=== PATIENT | male | born 1945 | race Caucasian/White ===

== ENCOUNTER 2018-02-22 08:59 | Outpatient (CLI) | payer MEDICARE ==
--- NOTE | 2018-02-22 11:06 | HP ---
DATE OF SERVICE: 02/22/2018 HISTORY OF PRESENT ILLNESS: Mr. Frank Robles is a very pleasant 72-year-old gentleman who i s referred to the [facility] for evaluation of lymphedema of the right lower extremity. The patien t was referred to the [facility] by Dr. Medina on 02/13/2018. The patient reports right hip arthr oplasty in the past. He also states that he has undergone surgery for chronic venous insufficiency o n 2 occasions previously. He also states that from time to time he utilizes compression garments. H e states, however, that the superior portion of the compression garment feels like a tourniquet when he utilizes his garments. PAST MEDICAL HISTORY: 1. Arthritis. 2. Hypertension. 3. Benign prostatic hypertrophy. 4. Gastroesophageal reflux disease. PAST SURGICAL HISTORY: 1. Left carpal tunnel release. 2. Right carpal tunnel release. 3. Bilateral hip arthroplasty. 4. Washout of hip arthroplasty infection. 5. Knee arthroplasty. 6. Bilateral shoulder surgery. 7. Knee surgery prior to knee arthroplasty. 8. Lumbar laminectomy. 9. Surgery for chronic venous insufficiency x2. MEDICATIONS: 1. Esomeprazole. 2. Losartan/HCTZ. 3. Pioglitazone. 4. Amlodipine. 5. Finasteride. 6. Tamsulosin. 7. Lasix. 8. Hydroxyzine. 9. Coreg. 10. Xarelto. 11. Tizanidine. 12. Potassium chloride. 13. Metaxalone. 14. Ibuprofen. ALLERGIES: PENICILLIN. SOCIAL HISTORY: Negative for tobacco use. The patient admits to the consumption of 2-3 drinks per d ay for 30-40 years. FAMILY HISTORY: Negative for diabetes mellitus or coronary artery disease. PHYSICAL EXAMINATION: VITAL SIGNS: Temperature 98.8, pulse 84, respirations 18, blood pressure 157/89. GENERAL: A 72-year-old gentleman sitting on table in examination room in no acute distress. HEENT: Normocephalic, atraumatic. NECK: No nuchal rigidity. CHEST: Clear to auscultation. CARDIOVASCULAR: Regular rate and rhythm. ABDOMEN: Soft. EXTREMITIES: Swelling of the right and left lower extremities is present on exam today. The swellin g of the right lower extremity is greater than that of the left lower extremity. Circumferences of t he right lower extremity at the ankle, calf and knee are 32.5 cm, 47.5 cm, and 44 cm. Circumferences of the left lower extremity at the ankle, calf and knee are 32 cm, 42 cm, and 39 cm. No open wounds are present over the right or left lower extremity. Slight erythema of the right anterior lower leg is present consistent with stasis changes as opposed to an infectious process. Mild calf tenderness is also present on exam today. Numerous varicosities are present over the right and left lower legs . Discoloration of the skin of the right and left lower legs is also present secondary to hemosideri n deposition. NEUROLOGIC: Grossly nonfocal. ASSESSMENT AND PLAN: 1. Chronic venous insufficiency. The patient reports the recent onset of calf tenderness. Ultrasou nd of the right lower extremity will be obtained today to look for findings suggestive of deep venous thrombosis. 2. Lymphedema tarda. The patient reports the swelling of his lower extremities is persistent despit e elevation of his lower extremities, particularly at night. Arrangements will be made for the initi ation of in-home lymphedema therapy. I will see Mr. Robles again in one week. The patient understand s and is in agreement with the preceding treatment plan. 3. Arthritis. 4. Hypertension. 5. Benign prostatic hypertrophy. 6. Gastroesophageal reflux disease.
== END 2018-02-22 09:00 | disposition home or self-care (01) ==
LOC: WCC 08:59
PROVIDERS: ATTEND Family Medicine
DX: I89.0 Lymphedema, not elsewhere classified (principal); I87.2 Venous insufficiency (chronic) (peripheral); M19.90 Unspecified osteoarthritis, unspecified site; I10 Essential (primary) hypertension; N40.0 Benign prostatic hyperplasia without lower urinary tract symptoms; K21.9 Gastro-esophageal reflux disease without esophagitis
CPT/HCPCS: 97139; G0463; 99203

== ENCOUNTER 2018-02-22 10:18 | Outpatient (CLI) | payer MEDICARE ==
--- NOTE | 2018-02-22 11:25 | ULT ---
ULTRASOUND VENOUS DOPPLER RIGHT UNILATERAL: HISTORY: M79.89. Swelling. Pain. COMPARISON: None. TECHNIQUE: Real-time werner-scale color Doppler and spectral analysis of the right lower extremity venous system w as performed with a linear array transducer. The common femoral, femoral, and proximal portion of th e greater saphenous and deep femoral veins, as well as the popliteal and posterior tibial veins were interrogated. FINDINGS: There is normal flow, augmentation, and compression. A multiloculated popliteal cyst is present. Mild low grade edema. IMPRESSION: 1. Low grade edema and popliteal cyst. 2. No deep venous thrombosis. POS: [facility]
== END 2018-02-22 10:19 | disposition home or self-care (01) ==
LOC: ULT 10:18
PROVIDERS: ATTEND Family Medicine
DX: R60.0 Localized edema (principal); M71.21 Synovial cyst of popliteal space [Baker], right knee

== ENCOUNTER 2018-06-26 14:08 | Outpatient (CLI) | payer MEDICARE ==
[~2018-06-26 14:08] MED LIST: Gadobenate Dimeglumine 529 MG/1 ML (20ML VIAL) ONE
--- NOTE | 2018-06-26 16:08 | RAD ---
LUMBAR SPINE FOUR VIEWS: INDICATIONS: Lumbar pain. History of prior lumbar surgery. TECHNIQUE: Lateral views were obtained with neutral, flexion, and extension positions. FINDINGS: On the AP view, there are prominent degenerative hypertrophic changes. Disk narrowing at L1-L2 and a t L2-L3. Scoliosis curvature with convexity to the left and apex at L3. Posterior laminectomy pope e. Pedicle screws are seen at L4 and L5. There is an interbody implant at L4-L5. There is a grade 1 spondylolisthesis at L4-L5. Posterior facet hypertrophy is prominent. There is mild posterior listhesis at L2-L3, which has not significantly changed with flexion and exte nsion. The anterolisthesis at L4-L5 did not appear to significantly change with flexion and extensio n. IMPRESSION: Degenerative and postoperative changes, lumbar spine, noted, as described. POS: [place]
--- NOTE | 2018-06-26 17:31 | MRI ---
MRI LUMBAR SPINE WITH AND WITHOUT CONTRAST: Date: 06/26/18 Multiplanar, multisequential imaging of the lumbar spine obtained. Postcontrast images obtained with administration of 20 mL MultiHance IV. INDICATION: Lumbar surgery in 2016. Lumbar pain. Leg weakness. Comparison made to MRI lumbar spine dated 07/14/16. FINDINGS: Postoperative changes are now apparent. The lumbar vertebra maintain height. There is posterolisthesi s at L1-2, L2-3, and L3-4. There is slight anterolisthesis at L4-5. Pedicle screws are present at L4- 5 and have been placed since prior exam. Anterolisthesis at L4-5 is stable from prior exam. At L1-2, disc bulge and hypertrophic change results in mild to moderate central canal stenosis. Bilat eral foraminal stenosis. At L2-3, mild posterolisthesis and diffuse disc bulge combined with facet hypertrophy results in mild central canal stenosis. Bilateral foraminal stenosis. At L3-4, there is disc bulge combined with facet hypertrophy. Mild central canal stenosis. Bilateral foraminal narrowing. Cortical screws at L4. At L4-5, there is anterolisthesis. Prominent facet hypertrophy. No significant central canal stenosis. Right foraminal stenosis. Pedicle screws at L5. No significant central canal stenosis at L5-S1. Mild foraminal stenosis on the left secondary to disc bulge and facet hypertrophy. There is a fluid signal collection seen posterior to the thecal sac at the L4-5 level which measures 3.3 cm craniocaudal x approximately 1.1 cm AP dimension. There is peripheral enhancement. This extend s to the epidural space. Postoperative changes seen in the posterior subcutaneous tissues. IMPRESSION: 1. Postoperative changes of the lumbar spine with central canal and foraminal stenosis described abo ve. 2. There is a fluid signal collection posterior to the L4-5 level seen extending through the posteri or epidural space with dimensions given above. There is mild peripheral enhancement and there is mild enhancement of the surrounding soft tissues suggesting inflammation or postoperative change. Conside rations include focal abscess, seroma, or liquefied hematoma. No communication with the thecal sac is seen and pseudomeningocele is felt unlikely. Correlate for signs of infection. POS: [place]
== END 2018-06-26 14:09 | disposition home or self-care (01) ==
LOC: TBSIIMAG 14:08
PROVIDERS: ATTEND Neurological Surgery
DX: M47.27 Other spondylosis with radiculopathy, lumbosacral region (principal); M43.16 Spondylolisthesis, lumbar region; M47.896 Other spondylosis, lumbar region; M48.061 Spinal stenosis, lumbar region without neurogenic claudication; M99.83 Other biomechanical lesions of lumbar region; Z98.890 Other specified postprocedural states
CPT/HCPCS: 72110; 72158; 82565; A9579

== ENCOUNTER 2018-11-29 12:21 | Outpatient (CLI) | payer MEDICARE ==
--- NOTE | 2018-11-29 14:58 | MRI ---
MRI BRAIN WITHOUT CONTRAST: History: Right lower extremity weakness. FINDINGS: No restricted diffusion is seen. No evidence of infarct, hemorrhage, midline shift, or abnormal extra axial fluid collections are seen. The ventricular size is appropriate and the basal cisterns patent. No signal abnormalities are seen in the FLAIR images. There is fluid in the left mastoid air cells. IMPRESSION: 1. No evidence of acute intracranial process. 2. Left mastoid effusion. POS: [facility]
--- NOTE | 2018-11-29 15:18 | MRI ---
MRI CERVICAL SPINE WITHOUT CONTRAST: INDICATIONS: Cervical spine stenosis. Cervical pain. COMPARISON: MRI cervical spine dated 07/14/2016. TECHNIQUE: Multiplanar, multisequence images of the cervical spine obtained. FINDINGS: Moderately severe degenerative disk changes seen at all levels of the cervical spine. Loss of disk s pace at all levels with osteophytes seen within all cervical vertebrae. Posterior alignment is prese rved. No significant spondylosis at C2-C3. At C3-C4, mild disk bulge and spondylosis efface the anterior subarachnoid space. No significant cor d impingement. Bilateral foraminal narrowing secondary to facet and uncinate hypertrophy. At C4-C5, posterior disk bulge and spondylosis impinge on the mildly flattened anterior cord. Bilate ral foraminal stenosis due to hypertrophic change. At C5-C6, disk bulge and spondylosis abut the anterior cord. Bilateral foraminal stenosis. At C6-C7, disk bulge and spondylosis abut the anterior cord. Mild bilateral foraminal encroachment. At C7-T1, slight anterolisthesis. Mild disk bulge. No significant central canal stenosis. Facet hy pertrophy without significant foraminal stenosis. Cervical cord signal appears normally maintained. IMPRESSION: Degenerative disk changes at all levels of the cervical spine. Posterior spondylitic changes impinge on the cord at C4-C5, C5-C6, and C6-C7, as described above. The findings at these levels do not appear significantly changed from the exam of 07/14/2016. POS: [place]
== END 2018-11-29 12:22 | disposition home or self-care (01) ==
LOC: SCSMRI 12:21
PROVIDERS: ATTEND Neurological Surgery
DX: M48.02 Spinal stenosis, cervical region (principal); R29.898 Other symptoms and signs involving the musculoskeletal system; M47.12 Other spondylosis with myelopathy, cervical region; M50.01 Cervical disc disorder with myelopathy, high cervical region; H74.8X2 Other specified disorders of left middle ear and mastoid
CPT/HCPCS: 70551; 72141

== ENCOUNTER 2018-12-28 14:11 | Outpatient (CLI) | payer MEDICARE ==
--- NOTE | 2018-12-28 15:30 | RAD ---
Exam: Cervical spine 3 views: HISTORY: Spinal stenosis cervical region back pain right foot drop COMPARISON: 07/14/2016 FINDINGS: Severe multilevel disc osteophytosis and facet arthrosis. C6, C7, and T1 are obscured on the lateral view. No evidence for significant abnormal translation between flexion and extension. IMPRESSION: Severe spondylosis. Stable from prior study.
--- NOTE | 2018-12-28 15:32 | RAD ---
EXAM: Lumbar spine 3 views: HISTORY: Spondylolysis with lumbar radiculopathy, back pain, right foot drop COMPARISON: 11/10/2016. FINDINGS: No evidence for acute fracture or dislocation involving the visualized spine. There are disc osteophytosis and facet arthrosis changes. Stable postoperative changes at L4-L5 with laminectomy and anterolisthesis. No new process. No evidence for a bone lesion. IMPRESSION: Spondylosis. No significant acute process.
--- NOTE | 2018-12-28 18:30 | MRI ---
EXAM: THORACIC SPINE MRI WITHOUT CONTRAST: 12/28/18 HISTORY: Pain. Right foot drop times several years. COMPARISON: None. TECHNIQUE: Thoracic spine MRI is performed without intravenous gadolinium administration. Multisequential, multi planar imaging is performed. FINDINGS: Overall appropriate signal and T1 marrow signal intensity of the thoracic vertebrae. There are type I I Modic changes at T4-T5. The visualized mediastinal structures are unremarkable. The visualized lung parenchyma is unremarkabl e. The visualized solid organs have an overall normal signal intensity. There are intermittent areas of central T2 hyperintensity in the thoracic cord which may represent syringohydromyelia. There is no evidence of cord expansion. No evidence of cord atrophy or malacia. T2-T3: Mild central canal stenosis due to left and right paracentral disc bulge. T3: There is a central/left paracentral disc protrusion which deforms the thoracic cord. Moderate natasha tral canal stenosis. T4-T5: No significant central canal stenosis. T5-T6: Small central disc protrusion without significant central canal stenosis. T6-T7, T7-T8: No significant central canal stenosis. T8-T9: Small central disc protrusion with deformity of the thecal sac and ventral cord. Mild to moder ate central canal stenosis. T9-T10: Left paracentral disc which deforms the thecal sac. Mild central canal stenosis. T10-T11: Mild right paracentral disc bulge without significant central canal stenosis. T11-T12: Mild left paracentral disc bulge without significant central canal stenosis. Neural foramina appear to be patent. IMPRESSION: 1. Varying degrees of central stenosis as detailed above. 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 Consider post contrast MRI to exclude intramedullary lesion. POS: [facility]
== END 2018-12-28 14:12 | disposition home or self-care (01) ==
LOC: TBSIIMAG 14:11
PROVIDERS: ATTEND Neurological Surgery
DX: M21.371 Foot drop, right foot (principal); R29.898 Other symptoms and signs involving the musculoskeletal system; M47.26 Other spondylosis with radiculopathy, lumbar region; M48.02 Spinal stenosis, cervical region; M47.812 Spondylosis without myelopathy or radiculopathy, cervical region; M48.04 Spinal stenosis, thoracic region
CPT/HCPCS: 72040; 72100; 72146

== ENCOUNTER 2019-01-09 09:34 | Outpatient (CLI) | payer MEDICARE ==
--- NOTE | 2019-01-09 16:03 | NM ---
NUCLEAR MEDICINE BRAIN IMAGIN01/09/19 HISTORY: Vascular Parkinsonism. TECHNIQUE: A DatScan with axial tomographic images of the brain was obtained three hours following intravenous a dministration of 4.6 millicuries Iodine 123 Ioflupane. 130 mg of potassium iodide were administered o ne hour prior to injection. FINDINGS: There is normal symmetric uptake in the striata bilaterally, demonstrating symmetric, crescent shaped focal regions of activity mirrored about the median plane. IMPRESSION: Normal exam. POS: [facility]
== END 2019-01-09 09:35 | disposition home or self-care (01) ==
LOC: NM 09:34
PROVIDERS: ATTEND Psychiatry & Neurology Neurology
DX: M47.27 Other spondylosis with radiculopathy, lumbosacral region (principal); G21.4 Vascular parkinsonism
CPT/HCPCS: 78607; A9584

== ENCOUNTER 2020-06-18 07:38 | Outpatient (CLI) | payer MEDICARE, OTHER ==
[2020-06-18 14:18] LABS: Hemoglobin 14.2 g/dL (14.0-18.0); Mean Corpuscular HGB CONC 32.8 g/dL (32.0-36.0); Mean Corpuscular Hemoglobin 33.7 pg (27.0-31.0); Mean Platelet Volume 7.1 fL (7.4-10.4); Platelet Count 178 thou/uL (130-400); RBC Distribution Width 12.6 % (11.5-14.5); Red Blood Cell (RBC) Count 4.21 mill/uL (4.70-6.10); White Blood Cell (WBC) Count 3.6 thou/uL (4.8-10.8)
[2020-06-18 14:28] LABS: Calcium 8.6 mg/dL (7.8-10.44); Chloride 93 mmol/L (98-107); Glucose 119 mg/dL (83-110); Potassium 3.9 mmol/L (3.5-5.1); Sodium 129 mmol/L (136-145)
[2020-06-18 14:30] LABS: Anion Gap 11 mmol/L (10-20); Carbon Dioxide 29 mmol/L (23-31)
[2020-06-18 14:32] LABS: Calc. Creatinine Clearance 0 mL/min (70-130); Estimated GFR-MDRD 80
[2020-06-18 14:33] LABS: BUN (Urea Nitrogen) 13 mg/dL (8.4-25.7)
[2020-06-18 14:37] LABS: PTT 37.4 sec (22.9-36.1); Prothrombin Time 22.6 sec (12.0-14.7)
[2020-06-18 15:02] LABS: Bacteria/HPF None Seen HPF (None Seen); Bilirubin Negative (Negative); Blood, Urine Negative (Negative); Clarity Clear (Clear); Glucose, Urine (Dipstick) Normal (Negative); Ketone, Urine Negative (Negative); Leukocyte Negative Leu/uL (Negative); Nitrite Negative (Negative); Protein, Urine (Dipstick) Negative (Neg-Trace); RBC/HPF 0-3 HPF (0-3); Squamous Epithelial None Seen HPF (0-3); WBC/HPF 0-3 HPF (0-3); pH, Urine 7.5 (5.0-9.0)
[2020-06-19 11:15] LABS: SARS-CoV-2 MS2 Positive; SARS-CoV-2 N Gene Negative; SARS-CoV-2 S Gene Negative; SARS-CoV-2 by NAA Not Detected (NotDetected); SARS-CoV-2 orf1ab Negative
== END 2020-06-18 07:39 | disposition home or self-care (01) ==
LOC: LABBT 07:38
PROVIDERS: ATTEND Urology
DX: Z01.818 Encounter for other preprocedural examination (principal); N40.1 Benign prostatic hyperplasia with lower urinary tract symptoms; Z20.828 Contact with and (suspected) exposure to other viral communicable diseases
CPT/HCPCS: 80048; 81001; 85027; 85610; 85730; 87086; 93005; U0003; 87635; 93010

== ENCOUNTER 2020-06-23 07:16 | Day surgery (SDC) | payer MEDICARE ==
[2020-06-18 12:48] VITALS: BMI 42.7
[2020-06-23] MEDS ORDERED: Fentanyl 100 MCG/2 ML VIAL ONE (08:53)
[2020-06-23] MEDS ORDERED: Levofloxacin 500 mg/D5W 100 ml Premix Bag ONE (08:57)
[2020-06-23] MEDS ORDERED: Phenazopyridine HCl 100 MG TAB ONE (09:56)
[2020-06-23] MEDS ORDERED: Ketorolac Tromethamine 30 MG/ML VIAL ONE (09:56)
[2020-06-23] MEDS ORDERED: Oxybutynin 5 MG TAB ONE (09:56)
[2020-06-23] MEDS ORDERED: Lidocaine 1% PF 5 ML VIAL ONE (14:04)
[2020-06-23] MEDS ORDERED: PROPOFOL 200 MG/20 ML VIAL ONE (14:04)
--- NOTE | 2020-06-23 15:57 | OP ---
DATE OF PROCEDURE: 06/23/2020 PREOPERATIVE DIAGNOSIS: Enlarged prostate with lower urinary tract symptoms. POSTOPERATIVE DIAGNOSIS: Enlarged prostate with lower urinary tract symptoms. PROCEDURE PERFORMED: UroLift. ANESTHESIA: TIVA. COMPLICATIONS: None. BLOOD LOSS: Minimal. SPECIMEN: None. DESCRIPTION OF PROCEDURE: After informed consent, the patient was taken to the operating room, transferred to the table under his own power. Anesthesia was established. A time-out was performed ensuring the correct patient, site, and procedure. Preoperative antibiotics were administered. He was prepped and draped in the lithotomy position. A 20-[place] cystoscope was inserted into the bladder, noting a normal course and caliber of the urethra and large coapting lateral lobes of the prostate. The bladder was then systematically examined, noting no mucosal abnormalities. He does have moderate trabeculation of the bladder with no large diverticula. The cystoscopy bridge was replaced with the UroLift delivery device. The first treatment site was the patient's left side approximately 2 cm distal to the bladder neck. The distal tip of the delivery device was then angled laterally approximately 20 degrees of this position to compress the lateral lobe. The trigger was pulled, thereby deploying a needle containing the implant through the prostate. The needle was then retracted, allowing one end of the implant to be delivered to the capsular surface of the prostate. The implant was then tensioned to assure capsular seating and removal of slack monofilament. The device was then angled back towards midline and slowly advanced proximally about 3 to 4 mm until cystoscopic verification of the monofilament being centered in the delivery bay. The urethral end piece was then affixed to the monofilament, thereby tailoring the size of the implant. Excess filament was then severed. The delivery device was then readvanced into the bladder. The delivery device was then replaced with cystoscope and bridge and the implant location, and opening effect was confirmed cystoscopically. The same procedure was repeated on the right side near the bladder neck, deploying the second implant. Two additional implants, 3rd and 4th, were delivered just proximal to the verumontanum, again one in the right and one in the left side of the prostate following a similar technique. Cystoscopy then revealed persistent area of obstruction in the mid prostate and two implants were placed, one in the right and one in the left. Final cystoscopic examination was performed, showing excellent anterior channel throughout the prostatic urethra with irrigation flow turned off. Total number of implants used 6. The patient was then awoken from anesthesia, transferred back to his hospital bed and taken to PACU in stable condition, where he will discharge home after completing a void trial. Job ID: [id number]
== END 2020-06-23 11:25 | disposition home or self-care (01) ==
LOC: SDC 07:16
PROVIDERS: ATTEND Urology
PROC: 0T7D8DZ Dilation of Urethra with Intraluminal Device, Via Natural or Artificial Opening Endoscopic (ICD-10-PCS; principal; 2020-06-23)
DX: N40.1 Benign prostatic hyperplasia with lower urinary tract symptoms (principal); M19.90 Unspecified osteoarthritis, unspecified site; I10 Essential (primary) hypertension; K21.9 Gastro-esophageal reflux disease without esophagitis; E78.00 Pure hypercholesterolemia, unspecified; G89.29 Other chronic pain; I87.2 Venous insufficiency (chronic) (peripheral); Z79.01 Long term (current) use of anticoagulants; Z79.899 Other long term (current) drug therapy; Z88.0 Allergy status to penicillin
CPT/HCPCS: C1889; J1885; J1956; J2704; J3010